=== PATIENT | female | born 1990 | race African-American/Black ===

== ENCOUNTER 2016-11-23 22:42 | Emergency (ER) | payer MEDICAID ==
[~2016-11-23] VITALS: Ht 167.6 cm; Wt 68.0 kg
[~2016-11-23 22:42] MED LIST: BC PILL; DIPH25CA83 PO; [UNRECOGNIZED DRUG - REMARK] EACHEYE
--- NOTE | 2016-11-23 22:45 | NUR ---
PT WALKED INTO ER C/O LEFT UNDERARM PAIN/EDEMA/REDDNESS X 1 WK, SAW AN MD 2 DAYS AGO AND WAS STARTED ON KEFLEX 500MG PO QID... PT IS ALERT, ORIENTED X 3, NO RESP DISTRESS NOTED OR REPORTED UPON ASSESSMENT...MD AT BEDSIDE...
[2016-11-23] MEDS ORDERED: CEPH-570 PO (22:54)
[2016-11-23] MEDS ORDERED: ONDANSETRON ODT 4 MG TAB.RAPDIS SL ONE (23:15)
[2016-11-23] MEDS ORDERED: HYDROMORPHONE 1 MG/1 ML DISP.SYRIN IM ONE (23:15)
[2016-11-23 23:18] LABS: *URINE HCG, QUAL NEGATIVE (NEGATIVE)
[2016-11-23] MEDS ORDERED: DIAZEPAM 2 MG TABLET PO ONE (23:30)
[2016-11-23] MEDS ORDERED: HYDROMORPHONE 2 MG/1 ML DISP.SYRIN ONE (23:54)
[2016-11-23] MEDS ORDERED: ONDANSETRON ODT 4 MG TAB.RAPDIS ONE (23:54)
[2016-11-23] MEDS ORDERED: DIAZEPAM 2 MG TABLET ONE (23:55)
[2016-11-24] MEDS ORDERED: ACETAMINOPHEN ES 500 MG TABLET ONE (00:41)
[2016-11-24] MEDS ORDERED: SULFAMETH/TRIMETH 800/160 MG TABLET PO ONE (01:45)
[2016-11-24] MEDS ORDERED: SULFAMETH/TRIMETH 800/160 MG TABLET ONE (01:58)
[2016-11-24] MEDS ORDERED: ONDANSETRON ODT 4 MG TAB.RAPDIS SL ONE (02:00)
[2016-11-24] MEDS ORDERED: ONDANSETRON ODT 4 MG TAB.RAPDIS ONE (02:03)
--- NOTE | 2016-11-24 02:19 | NUR ---
Patient discharged to home in stable conditon. Written and verbal after care instructions given. Patient verbalizes understanding of instructions. Pt walked out of ER unassisted with belongings and boyfriend at side...
[2016-11-24 02:27] VITALS: BP 129/92
== END 2016-11-24 02:28 | disposition home or self-care (01) ==
LOC: ER 22:44
DX: L73.2 Hidradenitis suppurativa (principal); M79.622 Pain in left upper arm; F41.9 Anxiety disorder, unspecified
CPT/HCPCS: 84703; 96372; 99284; A4663; J1170; Q0162 ×2

== ENCOUNTER 2017-03-30 18:54 | Emergency (ER) | payer MEDICAID ==
[~2017-03-30] VITALS: Ht 167.6 cm; Wt 67.1 kg
[~2017-03-30 18:54] MED LIST changes: +CEPH-570 PO; -DIPH25CA83 PO; -[UNRECOGNIZED DRUG - REMARK] EACHEYE
--- NOTE | 2017-03-30 19:27 | NUR ---
Patient discharged to home in stable conditon. Written and verbal after care instructions given. Patient verbalizes understanding of instructions.
== END 2017-03-30 19:27 | disposition home or self-care (01) ==
LOC: ER 18:54
DX: I88.9 Nonspecific lymphadenitis, unspecified (principal); Z90.49 Acquired absence of other specified parts of digestive tract
CPT/HCPCS: A4663

== ENCOUNTER 2017-04-28 18:23 | Emergency (ER) | payer MEDICAID ==
[~2017-04-28] VITALS: Ht 167.6 cm; Wt 67.1 kg
--- NOTE | 2017-04-28 19:09 | NUR ---
MSE COMPLETED,PT D/C'D HOME, ACI GIVEN, PT AMBULATED W/O DIFF/TOOK ALL BELONGINGS.
[2017-04-28 19:11] VITALS: BP 135/88
== END 2017-04-28 19:12 | disposition home or self-care (01) ==
LOC: ER 18:23
DX: D17.9 Benign lipomatous neoplasm, unspecified (principal); Z90.49 Acquired absence of other specified parts of digestive tract
CPT/HCPCS: 99281; A4663

== ENCOUNTER 2017-09-15 12:56 | Emergency (ER) | payer MEDICAID ==
[~2017-09-15] VITALS: Ht 167.6 cm; Wt 65.8 kg
[~2017-09-15 12:56] MED LIST changes: -CEPH-570 PO
[2017-09-15] MEDS ORDERED: ONDANSETRON 4 MG/2 ML VIAL IV ONE (13:15)
[2017-09-15] MEDS ORDERED: IV NORMAL SALINE 1000 ML BAG IV ONE (13:15)
[2017-09-15] MEDS ORDERED: MORPHINE SULFATE 2 MG/1 ML DISP.SYRIN IV ONE (13:15)
[2017-09-15] MEDS ORDERED: ONDANSETRON 4 MG/2 ML VIAL ONE ×2 (13:23→14:45)
[2017-09-15] MEDS ORDERED: MORPHINE SULFATE 4 MG/1 ML DISP.SYRIN ONE (13:23)
[2017-09-15 13:28] LABS: BASOPHILS % (AUTO) 0.2 % (0.0-2.0); EOSINOPHILS % (AUTO) 0.1 % (0.0-7.0); HEMATOCRIT 41.2 % (31.2-41.9); HEMOGLOBIN 14.1 g/dL (10.9-14.3); LYMPHOCYTES # (AUTO) 0.8 K/uL (20.0-40.0); LYMPHOCYTES % (AUTO) 7.7 % (20.5-51.5); MEAN CORPUSCULAR HEMOGLOBIN 29.6 uug (24.7-32.8); MEAN CORPUSCULAR HGB CONC 34 g/dL (32.3-35.6); MEAN CORPUSCULAR VOLUME 86.6 fL (75.5-95.3); MONOCYTES # (AUTO) 0.9 K/uL (2.0-10.0); MONOCYTES % (AUTO) 8.1 % (0.0-11.0); NEUTROPHILS % (AUTO) 83.9 % (38.5-71.5); PLATELET COUNT (AUTO) 338 K/uL (179-408); RED BLOOD CELL COUNT(AUTO) 4.76 MIL/uL (3.63-4.92); WHITE BLOOD COUNT (AUTO) 10.7 K/uL (3.8-11.8)
[2017-09-15 13:40] LABS: CREATININE 0.7 mg/dL (0.6-1.3)
[2017-09-15 13:45] LABS: BILIRUBIN,DIRECT 0.1 mg/dL (0.0-0.2); BILIRUBIN,TOTAL 0.5 mg/dL (0.2-1.0); TOTAL PROTEIN, SERUM 8.5 g/dL (6.4-8.2)
[2017-09-15 14:28] LABS: *BILIRUBIN,URIN NEGATIVE (NEGATIVE); *BLOOD, URINE Trace-intact (NEGATIVE); *CLARITY,URINE CLEAR (CLEAR); *COLOR,URINE YELLOW (YELLOW); *KETONES,URINE 2+ (NEGATIVE); *PROTEIN,URINE NEGATIVE (NEGATIVE); *UROBILINOGEN,URINE 0.2 E.U./dl (NORMAL); LEUKOCYTE ESTERASE ,URINE NEGATIVE (NEGATIVE); NITRITE, URINE NEGATIVE (NEGATIVE); UGLUCOSE NEGATIVE (NEGATIVE)
[2017-09-15] MEDS ORDERED: ONDANSETRON IV *ER 4 MG/2 ML VIAL IV ONE (14:45)
--- NOTE | 2017-09-15 14:50 | NUR ---
Patient discharged to home in stable conditon. Written and verbal after care instructions given. Patient verbalizes understanding of instructions. Pt left ER with friend and walks in steady gait.
[2017-09-15 14:52] LABS: BACTERIA,URINE NONE SEEN /HPF (NONE SEEN); SQUAMOUS EPITHELIAL CELL,UR FEW /HPF (NONE SEEN); WBC,URINE 0-3 /HPF (0-3)
[2017-09-15 14:55] VITALS: BP 120/72
--- NOTE | 2017-09-15 14:55 | NUR ---
Patient discharged to home in stable conditon. Written and verbal after care instructions given. Patient verbalizes understanding of instructions.pt walks in steady gait. pt asked for cracker and juice. tolerated the po challenge. pt walks in steady gait. pt not driving. pt with so.
== END 2017-09-15 14:50 | disposition home or self-care (01) ==
LOC: ER 12:56
DX: K52.9 Noninfective gastroenteritis and colitis, unspecified (principal); Z90.49 Acquired absence of other specified parts of digestive tract; Z88.0 Allergy status to penicillin; Z79.3 Long term (current) use of hormonal contraceptives
CPT/HCPCS: 36415; 83690; 84703; 85025; A4663; J2270; J2405; J7030

== ENCOUNTER 2018-11-03 20:25 | Emergency (ER) | payer MEDICAID ==
[~2018-11-03] VITALS: Ht 167.6 cm; Wt 70.3 kg
[2018-11-03 20:51] LABS: *URINE HCG, QUAL NEGATIVE (NEGATIVE)
[2018-11-03] MEDS ORDERED: CLINDAMYCIN HCL 150 MG CAPSULE PO ONE (21:00)
[2018-11-03] MEDS ORDERED: CLINDAMYCIN HCL 300 MG CAPSULE ONE (21:03)
[2018-11-03 21:07] VITALS: BP 119/84
--- NOTE | 2018-11-03 21:07 | NUR ---
Patient discharged to home in stable conditon. Written and verbal after care instructions given. Patient verbalizes understanding of instructions.
== END 2018-11-03 21:08 | disposition home or self-care (01) ==
LOC: ER 20:26
DX: L02.211 Cutaneous abscess of abdominal wall (principal); Z90.49 Acquired absence of other specified parts of digestive tract; Z88.0 Allergy status to penicillin; Z88.2 Allergy status to sulfonamides
CPT/HCPCS: 84703; A4663

== ENCOUNTER 2019-04-09 10:23 | Emergency (ER) | payer MEDICAID ==
[~2019-04-09] VITALS: Ht 167.6 cm; Wt 68.9 kg
--- NOTE | 2019-04-09 10:38 | NUR ---
ER at bedside
[2019-04-09] MEDS ORDERED: IV NORMAL SALINE 1000 ML BAG IV ONE (10:45)
[2019-04-09] MEDS ORDERED: METOCLOPRAMIDE HCL 10 MG/2 ML VIAL IV ONE (10:45)
[2019-04-09 10:52] LABS: BASOPHILS # (AUTO) 0.1 K/uL (0.0-8.0); BASOPHILS % (AUTO) 0.6 % (0.0-2.0); EOSINOPHILS % (AUTO) 0.4 % (0.0-7.0); HEMATOCRIT 40.9 % (31.2-41.9); HEMOGLOBIN 13.5 g/dL (10.9-14.3); LYMPHOCYTES # (AUTO) 1.9 K/uL (20.0-40.0); LYMPHOCYTES % (AUTO) 21.1 % (20.5-51.5); MEAN CORPUSCULAR HEMOGLOBIN 29.8 uug (24.7-32.8); MEAN CORPUSCULAR HGB CONC 33 g/dL (32.3-35.6); MEAN CORPUSCULAR VOLUME 90.2 fL (75.5-95.3); MONOCYTES # (AUTO) 0.8 K/uL (2.0-10.0); MONOCYTES % (AUTO) 8.8 % (0.0-11.0); NEUTROPHILS # (AUTO) 6.3 K/uL (1.8-8.9); NEUTROPHILS % (AUTO) 69.1 % (38.5-71.5); PLATELET COUNT (AUTO) 425 K/uL (179-408); RED BLOOD CELL COUNT(AUTO) 4.53 MIL/uL (3.63-4.92); WHITE BLOOD COUNT (AUTO) 9.1 K/uL (3.8-11.8)
--- NOTE | 2019-04-09 10:54 | NUR ---
US tech, Jose, at bedside for scan
[2019-04-09 10:59] LABS: CREATININE 0.8 mg/dL (0.6-1.3); POTASSIUM 3.5 mmol/L (3.5-5.1)
[2019-04-09] MEDS ORDERED: METOCLOPRAMIDE HCL 10 MG/2 ML VIAL ONE (11:00)
[2019-04-09 11:04] LABS: BILIRUBIN,DIRECT 0.1 mg/dL (0.0-0.2); BILIRUBIN,TOTAL 0.4 mg/dL (0.2-1.0)
--- NOTE | 2019-04-09 11:08 | NUR ---
Female validation engineer, Karen BURCH, accompanied US tech for female patient.
[2019-04-09 11:34] LABS: *BILIRUBIN,URIN NEGATIVE (NEGATIVE); *BLOOD, URINE NEGATIVE (NEGATIVE); *CLARITY,URINE CLEAR (CLEAR); *COLOR,URINE YELLOW (YELLOW); *KETONES,URINE NEGATIVE (NEGATIVE); *UROBILINOGEN,URINE 0.2 E.U./dl (NORMAL); LEUKOCYTE ESTERASE ,URINE NEGATIVE (NEGATIVE); NITRITE, URINE NEGATIVE (NEGATIVE); PH,URINE 8.5 (5.0-8.0); UGLUCOSE NEGATIVE (NEGATIVE)
--- NOTE | 2019-04-09 11:41 | NUR ---
Patient discharged to home in stable conditon. Written and verbal after care instructions given. Patient verbalizes understanding of instructions. IV dc'd, pt tolated well. gait steady when ambulating. denies any discomfort at this time.
[2019-04-09 11:46] VITALS: BP 124/67
== END 2019-04-09 11:41 | disposition home or self-care (01) ==
LOC: ER 10:23
DX: O26.891 Other specified pregnancy related conditions, first trimester (principal); R10.9 Unspecified abdominal pain; O21.9 Vomiting of pregnancy, unspecified; Z88.0 Allergy status to penicillin; Z88.2 Allergy status to sulfonamides; Z90.49 Acquired absence of other specified parts of digestive tract; Z3A.01 Less than 8 weeks gestation of pregnancy
CPT/HCPCS: 36415; 76856; 80048; 80076; 81001; 84702; 85025; 96361; 96374; 99284; J2765; A4663; J7030